=== PATIENT | female | born 1995 | race Caucasian/White ===

== ENCOUNTER 2018-04-29 22:27 | Emergency (ER) | payer SELFPAY ==
[~2018-04-29] VITALS: Ht 157.5 cm; Wt 86.2 kg
[2018-04-29 22:33] VITALS: Ht 157.5 cm; Wt 86.2 kg
[2018-04-29 23:34] LABS: CALCIUM 8.3 mg/dL (8.5-10.1); CARBON DIOXIDE 22.9 mmol/L (21-32); CHLORIDE SERUM 104 mmol/L (98-107); CREATININE SERUM 0.7 mg/dL (0.6-1.0); GFR1 > 60 mL/min; GLUCOSE SERUM 98 mg/dL (74-106); POTASSIUM SERUM 3.8 mmol/L (3.5-5.1); SODIUM SERUM 138 mmol/L (136-145)
[2018-04-29 23:35] LABS: BASOPHIL % 0.1 % (0-2); PLATELET COUNT 349 x10^3mcL (130-400)
[2018-04-29 23:47] LABS: ALBUMIN 3.5 g/dL (3.4-5.0); ALKALINE PHOSPHATASE 68 U/L (46-116); ALT/SGPT 21 U/L (14-59); AST/SGOT 14 U/L (15-37); BILIRUBIN TOTAL 0.1 mg/dL (0.20-1.00); LIPASE 150 IU/L (73-393); TOTAL PROTEIN, SERUM 7.9 g/dL (6.4-8.2)
[2018-04-29 23:51] LABS: RED CELL DISTRIBUTION WIDTH 19.1 % (11.5-14.5)
[2018-04-30] LABS: UA SPECIFIC GRAVITY >=1.030 (1.005-1.035); microscopic required? YES; urine erythrocyte 3+ (NEGATIVE)
[2018-04-30 00:12] LABS: AMPHETAMINE QUAL UR NONE DETECTED (See below)
[2018-04-30 00:58] LABS: rbc morphology (normal/abnorm) ABNORMAL (NORMAL)
[2018-04-30 02:24] VITALS: BP 110/84
== END 2018-04-30 02:24 | disposition home or self-care (01) ==
LOC: ED 22:27
PROVIDERS: Emergency Medicine
DX: N39.0 Urinary tract infection, site not specified (principal); E86.0 Dehydration; E83.42 Hypomagnesemia; D64.9 Anemia, unspecified; R55 Syncope and collapse
CPT/HCPCS: 83880; 84439; 85378; J2405; J3475